=== PATIENT | male | born 1960 | race Caucasian/White ===

== ENCOUNTER 2022-03-27 18:02 | Emergency (ER) | payer BC | END 2022-03-27 19:05 | disposition home or self-care (01) | LOC: LL.ED 18:02 | DX: M25.532 Pain in left wrist (principal); Z72.0 Tobacco use | CPT/HCPCS: 73110-LT; 99283 ==

== ENCOUNTER 2025-01-12 09:52 | Day surgery (SDC) | payer BC, MEDICARE ==
[~2025-01-12 09:52] MED LIST: Midazolam 1 MG/ML 2 ML SDV ONE; Propofol 200 MG/20 ML SDV ONE; Sodium Chloride 0.9% 10 ML Syringe FLUSH PRN
[2025-01-12] MEDS: Lactated Ringers 1,000 ML IV SCH (10:25)
[2025-01-12 12:34] VITALS: BP 128/88; PULSE 59
== END 2025-01-12 13:05 | disposition home or self-care (01) ==
LOC: LL.SDS 09:52
PROVIDERS: ATTEND Surgery
DX: Z12.11 Encounter for screening for malignant neoplasm of colon (principal); D12.5 Benign neoplasm of sigmoid colon; D12.0 Benign neoplasm of cecum; K63.5 Polyp of colon; K57.30 Diverticulosis of large intestine without perforation or abscess without bleeding; R19.5 Other fecal abnormalities; N18.31 Chronic kidney disease, stage 3a; F17.200 Nicotine dependence, unspecified, uncomplicated; Z83.719 Family history of colon polyps, unspecified
CPT/HCPCS: 00811; 88305; J2250; J2704; J7120